=== PATIENT | male | born 1965 | race African-American/Black ===

== ENCOUNTER 2019-07-03 12:07 | Emergency (ER) | payer MEDICAID, OTHER ==
[~2019-07-03] VITALS: Ht 177.8 cm; Wt 85.0 kg
[~2019-07-03 12:07] MED LIST: IBUP-1008
[2019-07-03] MEDS ORDERED: SODIUM CHLORIDE 0.9% 1,000 ML IV ONE (15:44)
[2019-07-03] MEDS ORDERED: ONDANSETRON HCL 4MG/2ML INJ IV STA (15:44)
[2019-07-03] MEDS ORDERED: MORPHINE SULFATE 4 MG/ML CPJ (NOT FOR IM USE) IV STA (15:44)
[2019-07-03] MEDS ORDERED: FAMOTIDINE 20MG/2ML VIAL IV STA (15:44)
[2019-07-03 16:09] LABS: HEMATOCRIT. 47.8 % (42.0-52.0); HEMOGLOBIN. 16.3 g/dL (14.0-18.0); MEAN CORPUSCULAR HEMOGLOBIN 32.4 pg (28.0-32.0); MEAN CORPUSCULAR VOLUME 94.8 fL (80.0-94.0); MEAN PLATELET VOLUME 7.8 fl (7.4-10.4); PLATELET 364 x1000/uL (130-400); RED BLOOD CELL COUNT 5.04 mill/uL (4.7-6.1); RED CELL DISTRIBUTION WIDTH 14.6 % (11.6-14.6)
[2019-07-03 16:15] LABS: CHLORIDE 98 mEq/L (98-107)
[2019-07-03 16:49] LABS: PLATELET ESTIMATE NORMAL
[2019-07-03] MEDS ORDERED: POTASSIUM CHLORIDE 20MEQ TABLET SR PO ONE (18:15)
[2019-07-03 18:41] VITALS: BP 132/76
[2019-07-03 19:44] LABS: CLARITY URINE CLEAR (CLEAR); COLOR URINE YELLOW (YELLOW); KETONES URINE TRACE (NEGATIVE); LEUKOCYTE ESTERASE URINE TRACE (NEGATIVE); NITRITE URINE NEGATIVE (NEGATIVE); OCCULT BLOOD URINE TRACE (NEGATIVE); PH URINE 8.5 (4.5-8.0); PROTEIN URINE TRACE (NEGATIVE); SPECIFIC GRAVITY URINE 1.045 (1.005-1.030)
[2019-07-03] MEDS ORDERED: IOHEXOL-300 100 ML BOTTLE ONE (19:51)
== END 2019-07-03 18:44 | disposition home or self-care (01) ==
LOC: ER 12:07
DX: K29.00 Acute gastritis without bleeding (principal); E87.6 Hypokalemia; G89.29 Other chronic pain; M54.9 Dorsalgia, unspecified; N44.00 Torsion of testis, unspecified; F17.200 Nicotine dependence, unspecified, uncomplicated
CPT/HCPCS: 36415; 74177; 80053; 81003; 83605; 83690; 85025; 85610; 96361; 96374; 96375; 99284; J2270; J2405; J3490; J7030; Q9967

== ENCOUNTER 2020-05-01 23:29 | Emergency (ER) | payer OTHER ==
[~2020-05-01] VITALS: Ht 175.3 cm; Wt 68.9 kg
[2020-05-02] MEDS ORDERED: SODIUM CHLORIDE 0.9% 1,000 ML IV ONE (00:15)
[2020-05-02] MEDS ORDERED: ONDANSETRON HCL 4MG/2ML INJ IV ONE (00:15)
[2020-05-02 00:59] LABS: BASOPHILS % 0.4 % (0.0-2.0); EOSINOPHILS % 0.2 % (0.0-5.0); HEMATOCRIT. 44.2 % (42.0-52.0); HEMOGLOBIN. 15.1 g/dL (14.0-18.0); LYMPHOCYTES % 20.2 % (20.0-50.0); MEAN CORPUSCULAR HEMOGLOBIN 32.5 pg (28.0-32.0); MEAN CORPUSCULAR VOLUME 95.1 fL (80.0-94.0); MEAN PLATELET VOLUME 7.3 fl (7.4-10.4); MONOCYTES % 11.6 % (2.0-8.0); NEUTROPHILS % 67.6 % (40.0-76.0); PLATELET 411 x1000/uL (130-400); RED BLOOD CELL COUNT 4.65 mill/uL (4.7-6.1); RED CELL DISTRIBUTION WIDTH 14.6 % (11.6-14.6)
[2020-05-02 01:04] LABS: CHLORIDE 100 mEq/L (98-107)
[2020-05-02 01:08] LABS: ETHANOL BLOOD < 10 mg/dL; PROTHROMBIN TIME 10.2 sec (9.6-11.0)
[2020-05-02] MEDS ORDERED: ACETAMINOPHEN 500MG TABLET PO NR (01:15)
[2020-05-02] MEDS ORDERED: FAMOTIDINE 20MG/2ML VIAL IV ONE (02:45)
[2020-05-02 02:48] VITALS: BP 119/74
[2020-05-02 03:05] LABS: *BARBITURATES SCREEN URINE NEGATIVE (NEGATIVE); CLARITY URINE CLEAR (CLEAR); COLOR URINE YELLOW (YELLOW); KETONES URINE TRACE (NEGATIVE); LEUKOCYTE ESTERASE URINE TRACE (NEGATIVE); NITRITE URINE NEGATIVE (NEGATIVE); OCCULT BLOOD URINE TRACE (NEGATIVE); PH URINE 7.5 (4.5-8.0); PROTEIN URINE 1+ (NEGATIVE); SPECIFIC GRAVITY URINE 1.024 (1.005-1.030)
[2020-05-02 03:06] LABS: *AMPHETAMINES SCREEN URINE NEGATIVE (NEGATIVE); *BENZODIAZEPINES SCREEN URINE NEGATIVE (NEGATIVE); *COCAINE SCREEN URINE NEGATIVE (NEGATIVE); CANNABINOID URINE SCREEN PRESUMTIVE POSITIVE (NEGATIVE); METHADONE URINE SCREEN NEGATIVE (NEGATIVE); OPIATES URINE SCREEN NEGATIVE (NEGATIVE); PHENCYCLIDINE URINE SCREEN NEGATIVE (NEGATIVE)
== END 2020-05-02 02:56 | disposition home or self-care (01) ==
LOC: ER 23:29
DX: R11.2 Nausea with vomiting, unspecified (principal)
CPT/HCPCS: 36415; 80053; 80305; 80320; 81003; 83690; 85025; 85610; 96361; 96374; 96375; 99284; J2405; J3490; J7030; G0480

== ENCOUNTER 2020-05-03 22:45 | Emergency (ER) | payer OTHER ==
[~2020-05-03] VITALS: Ht 182.9 cm; Wt 66.0 kg
[2020-05-03] MEDS ORDERED: SODIUM CHLORIDE 0.9% 1,000 ML IV ONE (23:07)
[2020-05-03] MEDS ORDERED: KETOROLAC 30MG/ML VIAL IV STA (23:07)
[2020-05-03] MEDS ORDERED: ONDANSETRON HCL 4MG/2ML INJ IV STA (23:07)
[2020-05-03 23:30] LABS: BASOPHILS % 0.5 % (0.0-2.0); EOSINOPHILS % 0.1 % (0.0-5.0); HEMATOCRIT. 43.4 % (42.0-52.0); LYMPHOCYTES % 12.4 % (20.0-50.0); MEAN CORPUSCULAR HEMOGLOBIN 32.6 pg (28.0-32.0); MEAN CORPUSCULAR VOLUME 94.3 fL (80.0-94.0); MEAN PLATELET VOLUME 7.3 fl (7.4-10.4); MONOCYTES % 6.1 % (2.0-8.0); NEUTROPHILS % 80.9 % (40.0-76.0); PLATELET 416 x1000/uL (130-400); RED BLOOD CELL COUNT 4.61 mill/uL (4.7-6.1); RED CELL DISTRIBUTION WIDTH 15.1 % (11.6-14.6)
[2020-05-03] MEDS ORDERED: FAMOTIDINE 20MG TABLET PO ONE (23:30)
[2020-05-03 23:42] LABS: INR 0.9
[2020-05-04 01:15] LABS: CHLORIDE 103 mEq/L (98-107)
[2020-05-04] MEDS: VISCOUS LIDOCAINE 2% 15 ML UDC PO NR ×2 (01:41→01:47)
[2020-05-04] MEDS: MAGNESIUM/ALUMINUM HYDROXIDE/SIMETHICONE 30ML UDC PO NR ×2 (01:41→01:47)
[2020-05-04 03:28] VITALS: BP 141/87
== END 2020-05-04 04:23 | disposition home or self-care (01) ==
LOC: ER 22:45
DX: F17.200 Nicotine dependence, unspecified, uncomplicated (principal)
CPT/HCPCS: 36415; 74021; 74176; 76705; 80053; 83690; 84484; 85025; 85610; 96361; 96374; 96375; 99285; J1885; J2405; J7030

== ENCOUNTER 2023-12-10 21:42 | Emergency (ER) | payer MEDICAID, OTHER ==
[~2023-12-10] VITALS: Ht 182.9 cm; Wt 63.5 kg
[2023-12-10 21:51] VITALS: O2SAT 99
[2023-12-10 23:14] LABS: BASOPHILS % 0.8 % (0.0-2.0); EOSINOPHILS % 0.1 % (0.0-5.0); HEMATOCRIT. 44.2 % (42.0-52.0); HEMOGLOBIN. 14.8 g/dL (14.0-18.0); LYMPHOCYTES % 32.3 % (20.0-50.0); MEAN CORPUSCULAR HEMOGLOBIN 30.8 pg (28.0-32.0); MEAN CORPUSCULAR HGB CONC 33.4 g/dL (31.0-37.0); MEAN CORPUSCULAR VOLUME 92.3 fL (80.0-94.0); MEAN PLATELET VOLUME 7.4 fl (7.4-10.4); MONOCYTES % 15.1 % (2.0-8.0); NEUTROPHILS % 51.7 % (40.0-76.0); PLATELET 350 x1000/uL (130-400); RED BLOOD CELL COUNT 4.78 mill/uL (4.7-6.1); RED CELL DISTRIBUTION WIDTH 13.8 % (11.6-14.6); WHITE BLOOD COUNT 5.5 x1000/uL (4.5-11.0)
[2023-12-10 23:15] LABS: CLARITY URINE CLEAR (CLEAR); COLOR URINE YELLOW (YELLOW); GLUCOSE URINE TRACE (NEGATIVE); KETONES URINE TRACE (NEGATIVE); LEUKOCYTE ESTERASE URINE NEGATIVE (NEGATIVE); NITRITE URINE NEGATIVE (NEGATIVE); OCCULT BLOOD URINE TRACE (NEGATIVE); PH URINE 7.5 (4.5-8.0); PROTEIN URINE 1+ (NEGATIVE); SPECIFIC GRAVITY URINE 1.021 (1.005-1.030)
[2023-12-10 23:17] LABS: DIFFERENTIAL COMMENT 1
[2023-12-10 23:27] LABS: ALANINE AMINOTRANSFERASE 16 IU/L (10-49); ALBUMIN 4.5 g/dL (3.2-4.8); ASPARTATE AMINOTRANSFERASE 22 IU/L (<34); BILIRUBIN TOTAL 0.7 mg/dL (0.1-1.0); CALCIUM 9.6 mg/dL (8.7-10.4); CARBON DIOXIDE 31 mEq/L (21-32); CHLORIDE 100 mEq/L (98-107); CREATININE 1.2 mg/dL (0.6-1.3); GLUCOSE 108 mg/dL (70-105); POTASSIUM 3.8 mEq/L (3.5-5.1); PROTEIN TOTAL 7.3 g/dL (6.0-8.3); SODIUM 136 mEq/L (136-145); TROPONIN I HIGH SENSITIVITY 6 ng/L (3.0-53); UREA NITROGEN BLOOD 13 mg/dL (9-23)
[2023-12-11 00:25] LABS: WBC URINE 0-2 /hpf (0-2)
[2023-12-11 00:26] LABS: SQUAMOUS EPITHELIAL CELL URINE NONE SEEN /lpf (RARE/1+)
[2023-12-11 00:27] LABS: BACTERIA URINE NONE SEEN
[2023-12-11] MEDS: MAGNESIUM/ALUMINUM HYDROXIDE/SIMETHICONE 30ML UDC PO STA (03:00)
[2023-12-11] MEDS: DICYCLOMINE 10 MG/5 ML ORAL SYR PO STA (03:00)
[2023-12-11] MEDS: ONDANSETRON 4MG ODT PO STA (03:01)
[2023-12-11] MEDS ORDERED: METO5TAB86 MT (05:16)
[2023-12-11 05:24] VITALS: BP 106/76; PULSE 74; RESP 18; TEMP 98
== END 2023-12-11 05:27 | disposition home or self-care (01) ==
LOC: ER 21:42
DX: K52.9 Noninfective gastroenteritis and colitis, unspecified (principal)
CPT/HCPCS: 99284; 80053; 81003; 83690; 85025; 84484; 36415; 93005; 74176; Q0162